=== PATIENT | male | born 1975 | race Caucasian/White ===

== ENCOUNTER 2016-09-09 18:48 | Emergency (ER) | payer MEDICAID ==
[2016-09-09] MEDS ORDERED: CLINDAMYCIN 600MG/4ML VIAL 600 MG in 0.9 % SODIUM CHLORIDE 100ML 100 ML IV ONE (19:08)
--- NOTE | 2016-09-09 19:12 | Emergency Department Record ---
History of Present Illness - General Chief complaint: Extremity Problem Stated complaint: LT INDEX FINGER INJURY Time Seen by Provider: 09/09/16 19:07 Source: Patient Mode of Arrival: Ambulatory Limitations: No limitations - History of Present Illness Initial comments: 41 yo male presents to ED with progressively worsening swelling and pain to the left index finger following a puncture wound with a piece of welding metal that went through his glove 4 days ago. Patient reports pain and swelling to the finger that has gradually worsened. Patient denies fevers, chills, or recent illness, denies health problems at his baseline. Tetanus is UTD currently. MD Complaint: Extremity pain, Extremity swelling Onset/Timin -: Days(s) Location: Left, Hand History of Same: Yes Severity scale (1-10): 10 Quality: Aching Consistency: Constant Improves with: Nothing - Related Data Home Medications Medication Instructions Recorded Confirmed Last Taken Escitalopram Oxalate [Lexapro] 10 mg PO DAILY 11/22/15 09/09/16 1 Day Ago ~09/08/16 Previous Rx's Medication Instructions Recorded Doxycycline Hyclate [Doxycycline] 100 mg PO BID #20 cap 09/09/16 Hydrocodone/Acetaminophen [[place] 1 each PO Q6H PRN #15 tablet 09/09/16 5-325 Tablet] Allergies Allergy/AdvReac Type Severity Reaction Status Date / Time Penicillins Allergy Severe rash, Verified 09/09/16 19:04 couldn't walk venom-honey bee Allergy Severe RASH Verified 09/09/16 19:04 [bee venom (honey bee)] Travel Screening - Travel/Exposure Within Last 30 Days Have you traveled within the last 30 days?: No - Travel/Exposure Within Last Year Have you traveled outside the [place] in the last year?: No - Additonal Travel Details Have you been exposed to anyone with a communicable illness?: No - Travel Symptoms Symptom Screening: None Review of Systems Constitutional: Denies: Chills, Fever, Malaise, Night sweats Eyes: Denies: Eye discharge, Eye pain ENT: Denies: Congestion, Ear pain, Epistaxis Respiratory: Denies: Cough, Dyspnea Cardiovascular: Denies: Chest pain, Dyspnea on exertion Endocrine: Denies: Fatigue, Heat or cold intolerance Gastrointestinal: Denies: Abdominal pain, Nausea, Vomiting Genitourinary: Denies: Incontinence, Retention Musculoskeletal: Reports: Arthralgia, Joint swelling. Denies: Back pain, Gout Skin: Denies: Bruising, Change in color Neurological: Denies: Abnormal gait, Confusion, Headache, Seizure Psychiatric: Denies: Anxiety Hematological/Lymphatic: Denies: Anemia, Blood Clots Past Medical History - SOCIAL HISTORY Smoking Status: Never smoker Alcohol Use: Rare Drug Use: Occassional Drug Use Detail:: Marijuana - RESPIRATORY Hx Respiratory Disorders: No - CARDIOVASCULAR Hx Cardio Disorders: No - NEURO Hx Neuro Disorders: No - GI Hx GI Disorders: No - Hx Genitourinary Disorders: No - ENDOCRINE Hx Endocrine Disorders: No - MUSCULOSKELETAL Hx Musculoskeletal Disorders: Yes Hx Arthritis: Yes - PSYCH Hx Psych Problems: No - HEMATOLOGY/ONCOLOGY Hx Hematology/Oncology Disorders: No Family Medical History Any Significant Family History?: Yes Physical Exam - General General Appearance: Alert, Oriented x3, Cooperative, Mild distress Limitations: No limitations - Head Head exam: Atraumatic, Normocephalic, Normal inspection Head exam detail: negative: Abrasion, Contusion, Li's sign, General tenderness, Hematoma, Laceration - Eye Eye exam: Normal appearance. negative: Conjunctival injection, Periorbital swelling, Periorbital tenderness, Scleral icterus - ENT Ear exam: negative: Auricular hematoma, Auricular trauma Nasal Exam: negative: Active bleeding, Discharge, Dried blood, Foreign body Mouth exam: negative: Drooling, Laceration, Muffled voice, Tongue elevation - Neck Neck exam: Normal inspection. negative: Meningismus, Tenderness - Respiratory Respiratory exam: Normal lung sounds bilaterally. negative: Rales, Respiratory distress, Rhonchi, Stridor - Cardiovascular Cardiovascular Exam: Regular rate, Normal rhythm, Normal heart sounds - GI/Abdominal GI/Abdominal exam: Soft. negative: Rebound, Rigid, Tenderness - Rectal Rectal exam: Deferred - exam: Deferred - Extremities Extremities exam: Joint swelling, Tenderness, Other (Diffuse STS to the left index finger, pain with flexion/extension, small area of fluctuance at puncture site.). negative: Calf tenderness, Pedal edema - Back Back exam: Denies: CVA tenderness (R), CVA tenderness (L) - Neurological Neurological exam: Alert, Normal gait, Oriented X3 - Psychiatric Psychiatric exam: Normal affect, Normal mood - Skin Skin exam: Normal color. negative: Abrasion Type of lesion: negative: abrasion Course Vital Signs 09/09/16 18:57 Temperature 98.3 F Pulse Rate 81 Respiratory 16 Rate Blood Pressure 123/72 Pulse Ox 97 - Reevaluation(s) Reevaluation #1: 09/09/16 20:06 Left index finger: STS, n FB, nothing acute. Procedure Note: Digital block and local anesthesia administered using 1% Lidocaine w/o epi with good anesthesia. Area of greatest fluctuance was incised and probed with very minimal discharge, sero-sanguinous. Clindamycin has almost completed infusion, dressing applied, and prescription for doxycycline and [place] was given to the patient with instructions for follow-up tomorrow with Dr. Gooden. I did personally speak with Dr. Gooden and he agrees with the plan of care as discussed. Disposition Disposition: Discharge Clinical Impression: Tenosynovitis of finger Disposition: Home, Self-Care Condition: (2) Stable Instructions: Tenosynovitis (ED) Additional Instructions: Return to ED if your symptoms worsen or if you have any concerns. Follow-up with Dr. Gooden tomorrow morning, call for appointment. Doxycycline and [place] as directed. Prescriptions: Doxycycline Hyclate [Doxycycline] 100 mg PO BID #20 cap Hydrocodone/Acetaminophen [[place] 5-325 Tablet] 1 each PO Q6H PRN #15 tablet PRN Reason: Pain - Moderate (5-7) Referrals: CEE GOODEN M.D. [MEDICAL DOCTOR] - Forms: Patient Portal Access Time of Disposition: 20:09
[2016-09-09] MEDS ORDERED: HYDROCODONE/APAP 5/325MG TABLET PO ONE (20:36)
--- NOTE | 2016-09-11 16:34 | RADIOLOGY REPORT ---
EXAM: FINGER(S), LEFT HISTORY: WIRE WENT THROUGH THE DISTAL ASPECT OF THE LEFT SECOND DIGIT TODAY. SMALL LACERATION. TECHNIQUE: Three views of the left index finger. COMPARISON: None. ENCOUNTER: Initial. FINDINGS: No fracture or radiopaque foreign body identified. No destructive or erosive change. Mild arthritic changes in the PIP joint of the left index finger. IMPRESSION: 1. NO FRACTURE OR RADIOPAQUE FOREIGN BODY. NO ACUTE PROCESS. 2. MILD ARTHRITIC CHANGES, PIP JOINT LEFT INDEX FINGER. JOB NUMBER: [id number] MTDD
== END 2016-09-09 20:55 | disposition home or self-care (01) ==
LOC: ER 18:48
DX: S61.231A Puncture wound without foreign body of left index finger without damage to nail, initial encounter (principal)
CPT/HCPCS: 10060; 73140; 96365; 99283

== ENCOUNTER 2017-09-16 13:32 | Emergency (ER) | payer SELFPAY ==
[2017-09-16] MEDS: KETOROLAC 30 MG/ML VIAL IM ONE (13:56)
--- NOTE | 2017-09-16 13:57 | Emergency Department Record ---
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 He was walking through lawn and stepped very awkwardly in a hole. The left lower back pain has continued to increase. NO leg radiation or numbness. No changes in bowel or bladder function. No prior back surgery but he states he has significant lumbar disc disease. MD Complaint: Back pain, Back injury -: Days(s) (3) Place: Home Radiation: None Severity: Severe Quality: Aching, Sharp Consistency: Constant Improves With: None Worsens With: Movement, Walking Context: Fall Associated Symptoms: Denies other symptoms - Related Data Previous Rx's Medication Instructions Recorded Cyclobenzaprine HCl [Flexeril] 10 mg PO TID #15 tablet 09/16/17 Hydrocodone/Acetaminophen [[place] 1 each PO Q8H #8 tablet 09/16/17 5-325 Tablet] Allergies Allergy/AdvReac Type Severity Reaction Status Date / Time Penicillins Allergy Severe rash, Verified 09/16/17 13:52 couldn't walk venom-honey bee Allergy Severe RASH Verified 09/16/17 13:52 [bee venom (honey bee)] Review of Systems Constitutional: Denies: Chills, Fever, Malaise, Weakness Eyes: Denies: Eye discharge ENT: Denies: Congestion, Throat pain Respiratory: Denies: Cough, Dyspnea, Wheezes Cardiovascular: Denies: Chest pain, Palpitations, Syncope Endocrine: Denies: Fatigue Gastrointestinal: Denies: Abdominal pain, Diarrhea, Nausea, Vomiting Genitourinary: Denies: Dysuria, Frequency Musculoskeletal: Reports: Back pain, Myalgia. Denies: Arthralgia, Joint swelling, Neck pain Skin: Denies: Bruising, Change in color Neurological: Denies: Abnormal gait, Headache, Numbness, Paresthesias, Tremors, Weakness Psychiatric: Denies: Anxiety Hematological/Lymphatic: Denies: Anemia, Blood Clots, Easy bleeding, Easy bruising, Swollen glands Past Medical History - SOCIAL HISTORY Drug Use: Occasional - RESPIRATORY Hx Respiratory Disorders: No - CARDIOVASCULAR Hx Cardio Disorders: No - NEURO Hx Neuro Disorders: No - GI Hx GI Disorders: No - Hx Genitourinary Disorders: No - ENDOCRINE Hx Endocrine Disorders: No - MUSCULOSKELETAL Hx Musculoskeletal Disorders: Yes Hx Arthritis: Yes - PSYCH Hx Psych Problems: No - HEMATOLOGY/ONCOLOGY Hx Hematology/Oncology Disorders: No Physical Exam - General General Appearance: Alert, Oriented x3, Cooperative, No acute distress Limitations: No limitations - Head Head exam: Atraumatic, Normal inspection - Eye Eye exam: Normal appearance. negative: Conjunctival injection, Scleral icterus - ENT ENT exam: Normal exam, Mucous membranes moist Ear exam: Normal external inspection Nasal Exam: Normal inspection - Neck Neck exam: Normal inspection. negative: Tenderness - GI/Abdominal GI/Abdominal exam: Soft. negative: Tenderness - Rectal Rectal exam: Deferred - exam: Deferred - Extremities Extremities exam: Normal inspection, Full ROM, Normal capillary refill, Other ( Negative straight leg raise). negative: Joint swelling, Pedal edema, Tenderness - Back Back exam: Reports: Paraspinal tenderness, Tenderness, Vertebral tenderness Image of Body Front/Back: 1 - tender left lateral lower lumbar, normal inspection - Neurological Neurological exam: Alert, Normal gait, Oriented X3, Reflexes normal. negative: Abnormal gait, Altered, Motor sensory deficit - Psychiatric Psychiatric exam: Normal affect, Normal mood. negative: Agitated, Anxious - Skin Skin exam: Dry, Intact, Normal color, Warm Course - Reevaluation(s) Reevaluation #1: 09/16/17 14:34 Lumbar XR with mild degenerative findings Disposition Disposition: Discharge Clinical Impression: Lumbar strain Disposition: Home, Self-Care Condition: (1) Good Instructions: Low Back Strain (ED) Additional Instructions: Call your doctor in the next week for a recheck Return if worse, weak, changes of bowel or bladder function Prescriptions: Cyclobenzaprine HCl [Flexeril] 10 mg PO TID #15 tablet Hydrocodone/Acetaminophen [[place] 5-325 Tablet] 1 each PO Q8H #8 tablet Forms: Patient Portal Access Time of Disposition: 14:34 Quality - Quality Measures Quality Measures: N/A - Blood Pressure Screening Does Patient Have Any of the Following: No Blood Pressure Classification: Hypertensive Reading Systolic Measurement: 149 Diastolic Measurement: 91 Screening for High Blood Pressure: < Pre-Hypertensive BP, F/U Documented > [ G8950] Pre-Hypertensive Follow-up Interventions: Referral to alternative/primary care provider.
--- NOTE | 2017-09-18 08:29 | RADIOLOGY REPORT ---
EXAM: LUMBAR SPINE HISTORY: PATIENT FELL IN A HOLE SATURDAY INJURING HIS BACK WITH PAIN MOSTLY ON THE LEFT SIDE. TECHNIQUE: Four views of the lumbar spine were obtained. Comparison: None. Encounter: Initial. FINDINGS: There appear to be six lumbar type vertebra. Surgical clips right upper quadrant of the abdomen presumably from cholecystectomy. Mild spurring in the lumbar spine probably with mild narrowing of the fifth and sixth lumbar interspaces. No fracture of the lumbar spine identified. IMPRESSION: 1. SIX LUMBAR TYPE VERTEBRA. 2. MILD DEGENERATIVE CHANGES IN THE LOWER LUMBAR SPINE. 3. SURGICAL CLIPS RIGHT UPPER QUADRANT. JOB NUMBER: [id number] [facility]
== END 2017-09-16 14:45 | disposition home or self-care (01) ==
LOC: ER 13:32
DX: S39.012A Strain of muscle, fascia and tendon of lower back, initial encounter (principal); X50.0XXA Overexertion from strenuous movement or load, initial encounter; Y92.009 Unspecified place in unspecified non-institutional (private) residence as the place of occurrence of the external cause
CPT/HCPCS: 72110; 96372; 99283; 99284; J1885

== ENCOUNTER 2018-01-20 08:25 | Emergency (ER) | payer SELFPAY ==
--- NOTE | 2018-01-20 08:46 | Emergency Department Record ---
History of Present Illness - General Chief complaint: Extremity Problem Stated complaint: RIGHTSHOULDER PAIN Time Seen by Provider: 01/20/18 08:37 Source: Patient Mode of Arrival: Ambulatory Limitations: No limitations - History of Present Illness Initial comments: Pt with right posterior shoulder pain for months. Constant, worse with motion or lifting arm. No specfic injury to should. Pain at night in bed. No radiation of pain. 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 No prior treatment of evaluation. No Insurance so difficult to see doctor. Onset/Timin -: Month(s) Location: Right, Shoulder History of Same: No Radiation: Proximal Severity scale (1-10): 4 Quality: Aching Consistency: Constant Improves with: Nothing Worsens with: Nothing Associated Symptoms: Denies other symptoms - Related Data Home Medications Medication Instructions Recorded Confirmed Last Taken Omeprazole 10 mg PO DAILY 01/20/18 01/20/18 Unknown Previous Rx's Medication Instructions Recorded Ibuprofen [Motrin] 800 mg PO Q8H PRN #40 tab 01/20/18 Allergies Allergy/AdvReac Type Severity Reaction Status Date / Time Penicillins Allergy Severe rash, Verified 01/20/18 08:30 couldn't walk venom-honey bee Allergy Severe RASH Verified 01/20/18 08:30 [bee venom (honey bee)] Travel Screening - Travel/Exposure Within Last 30 Days Have you traveled within the last 30 days?: No Review of Systems Constitutional: Denies: Chills, Fever Eyes: Denies: Eye discharge, Photophobia ENT: Denies: Congestion Respiratory: Denies: Cough Cardiovascular: Denies: Arrhythmia, Chest pain Endocrine: Denies: Fatigue Gastrointestinal: Denies: Abdominal pain, Constipation Musculoskeletal: Reports: As per HPI Skin: Denies: Bruising, Rash Neurological: Denies: Abnormal gait, Headache, Numbness, Weakness Psychiatric: Denies: Anxiety Hematological/Lymphatic: Denies: Anemia Past Medical History - SOCIAL HISTORY Smoking Status: Never smoker Alcohol Use: None Drug Use: None - RESPIRATORY Hx Respiratory Disorders: No - CARDIOVASCULAR Hx Cardio Disorders: No Comment:: glaucoma - NEURO Hx Neuro Disorders: No - GI Hx GI Disorders: Yes Hx Reflux: Yes - Hx Genitourinary Disorders: No - ENDOCRINE Hx Endocrine Disorders: No - MUSCULOSKELETAL Hx Musculoskeletal Disorders: Yes Hx Arthritis: Yes - PSYCH Hx Psych Problems: Yes Hx Anxiety: Yes - HEMATOLOGY/ONCOLOGY Hx Hematology/Oncology Disorders: No Family Medical History Any Significant Family History?: No Physical Exam - General General Appearance: Alert, Oriented x3, Cooperative, No acute distress - Head Head exam: Atraumatic - Eye Eye exam: Normal appearance, PERRL - ENT ENT exam: Normal exam - Neck Neck exam: Normal inspection, Full ROM. negative: Tenderness - Respiratory Respiratory exam: Normal lung sounds bilaterally. negative: Respiratory distress, Wheezes - Cardiovascular Cardiovascular Exam: Regular rate, Normal rhythm, Normal heart sounds. negative : Tachycardia - GI/Abdominal GI/Abdominal exam: Soft, Normal bowel sounds. negative: Tenderness - Extremities Extremities exam: Normal inspection, Tenderness. negative: Full ROM (right shoulder with business management specialist joint line tenderness, no deformity, pain worse with extension and ABDuction and INT and EXT rotation. No elbow pain. No anterior shoulder or AC joint pain. ) - Back Back exam: Reports: Normal inspection. Denies: Paraspinal tenderness - Neurological Neurological exam: Alert, Normal gait, Oriented X3. negative: Motor sensory deficit - Psychiatric Psychiatric exam: negative: Anxious - Skin Skin exam: negative: Cyanosis, Rash Course Vital Signs 01/20/18 08:27 Temperature 98.5 F Pulse Rate 89 Respiratory 20 Rate Blood Pressure 138/82 Pulse Ox 99 - Reevaluation(s) Reevaluation #1: 01/20/18 09:47 Pt with no insurance at this time. May have "medicaid pending". We discussed Xrays of shoulder. Without trauma or injury yield is low. Pt is concerned for cost and expense. To avoid cost today we will for go the XR and have arranged referral to Ortho office. We talked with Social Service Thelma who is checking into his insurance status. Home with exercise instructions, Motrin, Ice and referral. Pt agrees. Disposition Disposition: Discharge Clinical Impression: Pain, joint, shoulder, right Disposition: Home, Self-Care Condition: (2) Stable Instructions: Rotator Cuff Tendinitis (ED), Shoulder Pain (ED) Additional Instructions: ICE to area 20 minutes on and 20 minutes off. Referral to Orthopedic surgery for evaluation and treatment plan. Prescriptions: Ibuprofen [Motrin] 800 mg PO Q8H PRN #40 tab PRN Reason: Pain - Mild (1-4) Referrals: JAVY SANTACRUZ [DOCTOR OF OSTEOPATH] - Forms: Patient Portal Access Quality - Quality Measures Quality Measures: N/A - Blood Pressure Screening Does Patient Have Any of the Following: No Blood Pressure Classification: Pre-Hypertensive BP Reading Systolic Measurement: 138 Diastolic Measurement: 82 Screening for High Blood Pressure: < Pre-Hypertensive BP, F/U Documented > [ G8950] Pre-Hypertensive Follow-up Interventions: Follow-up with rescreen every year.
== END 2018-01-20 09:48 | disposition home or self-care (01) ==
LOC: ER 08:25
DX: M25.511 Pain in right shoulder (principal)
CPT/HCPCS: 99282